=== PATIENT | female | born 1950 | race Caucasian/White ===

== ENCOUNTER 2018-11-27 06:14 | Day surgery (SDC) | payer MEDICARE ==
[2018-11-22 12:41] VITALS: BMI 22.1
[~2018-11-27 06:14] MED LIST: LACTATED RINGERS 1,000 ML IV SCH; LIDOCAINE 1% 20 ML VIAL (10MG/ML) FOR IV START INTRADERMA PRN
[2018-11-27] MEDS ORDERED: PROPOFOL 10 MG/ML 20 ML VIAL IV ONE (06:56)
[2018-11-27] MEDS ORDERED: ONDANSETRON 4 MG/2 ML VIAL ONE (06:56)
[2018-11-27 06:57] VITALS: TEMP 98.6
--- NOTE | 2018-11-27 07:08 | P.GSHP ---
History of Present Illness H&P Date: 11/27/18 Chief Complaint: Colon cancer screening Patient here today for colonoscopy. Last colonoscopy 10 years ago. Mother with history of colon cancer. No bowel related complaints. Past Medical History Past Medical History: Hypertension, Thyroid Disorder Additional Past Medical History / Comment(s): SCLERODERMA, AFFECTS ESOPHAGUS - GETS SPASMS, NAUSEA; RAYNAUD'S. OSTEOPOROSIS. History of Any Multi-Drug Resistant Organisms: None Reported Additional Past Surgical History / Comment(s): EGD, COLONOSCOPIES. Past Anesthesia/Blood Transfusion Reactions: Postoperative Nausea & Vomiting ( PONV) Smoking Status: Never smoker - Past Family History Mother Family Medical History: Cancer Additional Family Medical History / Comment(s): COLON CA Medications and Allergies Home Medications Medication Instructions Recorded Confirmed Type ALPRAZolam [Xanax] 0.25 mg PO BID PRN 11/22/18 11/27/18 History Aspirin [Adult Low Dose Aspirin EC] 81 mg PO DAILY 11/22/18 11/27/18 History Cetirizine HCl [Zyrtec] 10 mg PO DAILY 11/22/18 11/27/18 History Levothyroxine Sodium [Synthroid] 50 mcg PO DAILY 11/22/18 11/27/18 History Losartan Potassium [Cozaar] 100 mg PO DAILY 11/22/18 11/27/18 History Multivitamins, Thera [Multivitamin 1 tab PO DAILY 11/22/18 11/27/18 History (formulary)] Omeprazole Magnesium [PriLOSEC OTC] 20 mg PO DAILY 11/22/18 11/27/18 History Simvastatin 40 mg PO HS 11/22/18 11/27/18 History Allergies Allergy/AdvReac Type Severity Reaction Status Date / Time hydromorphone [From Dilaudid] Allergy Swelling Verified 11/22/18 12:19 OF FACE, HALLUCINATIONS Surgical - Exam Vital Signs Temp Pulse Resp BP Pulse Ox 98.6 F 66 18 160/72 100 11/27/18 06:40 11/27/18 06:40 11/27/18 06:40 11/27/18 06:40 11/27/18 06:40 Physical exam: General: Well-developed, well-nourished HEENT: Normocephalic, sclerae nonicteric Abdomen: Nontender, nondistended Extremities: No edema Neuro: Alert and oriented Assessment and Plan (1) Colon cancer screening Narrative/Plan: Will proceed with colonoscopy at this time Current Visit: Yes Status: Acute Code(s): Z12.11 - ENCOUNTER FOR SCREENING FOR MALIGNANT NEOPLASM OF COLON SNOMED Code(s): 071405239
--- NOTE | 2018-11-27 07:23 | P.PCN ---
Date of Procedure: 11/27/18 Procedure(s) Performed: PREOPERATIVE DIAGNOSIS: Colon cancer screening, family history of colon cancer POSTOPERATIVE DIAGNOSIS: Diverticulosis PROCEDURE: Colonoscopy ANESTHESIA: [facility] SURGEON: Gilles Hubbard M.D. SPECIMENS: None ENDOSCOPIC PROCEDURE: The patient was placed on the endoscopy table in the left decubitus position. The Olympus colonoscope was inserted into the anus and passed under direct visualization to the base of the cecum. The appendiceal orifice was visualized. From that point the scope was slowly withdrawn inspecting all surfaces carefully. There were no neoplastic or polypoid lesions throughout the cecum, ascending, transverse, descending, sigmoid and rectum. There was left-sided diverticulosis noted with a small area of inflammation involving the midsigmoid. This was at the most tortuous area of the colon. The irritation seen could've been related to scope passage. Digital rectal examination was normal. The patient was taken to the recovery room in stable condition per anesthesia guidelines. RECOMMENDATIONS: Increase fiber. Follow-up colonoscopy 5 years.
[2018-11-27 07:40] VITALS: BP 112/70; PULSE 57; RESP 16
== END 2018-11-27 08:00 | disposition home or self-care (01) ==
LOC: ORWHC2ENDO 06:14
PROVIDERS: ATTEND Surgery
DX: Z12.11 Encounter for screening for malignant neoplasm of colon (principal); K57.30 Diverticulosis of large intestine without perforation or abscess without bleeding; Q43.8 Other specified congenital malformations of intestine; K21.9 Gastro-esophageal reflux disease without esophagitis; Z80.0 Family history of malignant neoplasm of digestive organs; I10 Essential (primary) hypertension; E07.9 Disorder of thyroid, unspecified; M34.9 Systemic sclerosis, unspecified; I73.00 Raynaud's syndrome without gangrene; M81.0 Age-related osteoporosis without current pathological fracture; Z79.82 Long term (current) use of aspirin; Z79.890 Hormone replacement therapy; Z79.899 Other long term (current) drug therapy; Z88.5 Allergy status to narcotic agent
CPT/HCPCS: J2405; J2704; G0105

== ENCOUNTER → 2023-08-13 | Outpatient (CLI) | payer MEDICARE ==
--- NOTE | 2023-08-14 07:30 | CA ---
Transthoracic Echo Report Name: Jeannette Daniels Age: 73 Gender: F : 1950 Exam Date: 08/13/2023 11:23 Exam Location: [facility] Ht (in): 63 Wt (lb): 123 Ordering Physician: Lianne Hubbard MD Attending/Referring Phys: Billet Bed Operator Radha Chacon [facility] Procedure CPT: Indications: I10 Essential Hypertension Cardiac Hx: Technical Quality: Fair Contrast 1: Total Dose (mL): Contrast 2: Total Dose (mL): MEASUREMENTS (Male / Female) Normal Values 2D ECHO LV Diastolic Diameter PLAX 3.8 cm 4.2 - 5.9 / 3.9 - 5.3 cm LV Systolic Diameter PLAX 2.6 cm IVS Diastolic Thickness 0.7 cm 0.6 - 1.0 / 0.6 - 0.9 cm LVPW Diastolic Thickness 0.8 cm 0.6 - 1.0 / 0.6 - 0.9 cm LV Relative Wall Thickness 0.4 LVOT Diameter 2.0 cm Ascending Aorta Diameter 2.7 cm M-MODE Aortic Root Diameter MM 2.2 cm LA Systolic Diameter MM 3.2 cm LA Ao Ratio MM 1.4 AV Cusp Separation MM 1.6 cm DOPPLER AV Peak Velocity 152.9 cm/s AV Peak Gradient 9.4 mmHg AV Mean Velocity 109.0 cm/s AV Mean Gradient 5.3 mmHg AV Velocity Time Integral 30.7 cm LVOT Peak Velocity 123.0 cm/s LVOT Peak Gradient 6.0 mmHg LVOT Velocity Time Integral 24.5 cm LVOT Stroke Volume 75.7 cm??? LVOT Stroke Volume Index 48.1 ml/m??? LVOT Cardiac Index 3119.2 cm???/min???m??? AV Area Cont Eq vti 2.5 cm??? AV Area Cont Eq pk 2.5 cm??? Mitral E Point Velocity 89.6 cm/s Mitral A Point Velocity 88.0 cm/s Mitral E to A Ratio 1.0 MV Deceleration Time 120.1 ms LV E' Lateral Velocity 10.4 cm/s Mitral E to LV E' Lateral Ratio 8.7 LV E' Septal Velocity 7.7 cm/s Mitral E to LV E' Septal Ratio 11.6 TR Peak Velocity 252.9 cm/s TR Peak Gradient 25.6 mmHg Right Atrial Pressure 3.0 mmHg Pulmonary Artery Systolic Pressu 28.6 mmHg Right Ventricular Systolic Press 28.6 mmHg FINDINGS Left Ventricle Left ventricular wall thickness normal. Left ventricular cavity size normal. Normal left ventricular systolic function with no obvious regional wall motion abnormalities. Left ventricular ejection fraction is estimated at 55-60%. Right Ventricle Right ventricle at upper limits of normal. Right Atrium Normal right atrial size. Left Atrium Normal left atrial size. Mitral Valve Structurally normal mitral valve. Mild mitral regurgitation. Aortic Valve Trileaflet aortic valve. No aortic valve stenosis or regurgitation. Tricuspid Valve Structurally normal tricuspid valve. Trace-mild tricuspid regurgitation. Pulmonic Valve Pulmonic valve not well visualized. Mild pulmonic regurgitation. Pericardium No pericardial effusion. Aorta Normal size aortic root and proximal ascending aorta. CONCLUSIONS Normal LV size and systolic function. Mild mitral and tricuspid regurgitation. No pericardial effusion. No pulmonary hypertension Previewed by: Dr. Adonis Arroyo MD (Electronically Signed) Final Date: 14 August 2023 07:29
== END | disposition home or self-care (01) ==
LOC: RADECHMAIN 11:10
PROVIDERS: ATTEND Family Medicine
DX: I08.1 Rheumatic disorders of both mitral and tricuspid valves (principal); I10 Essential (primary) hypertension
CPT/HCPCS: 93306

== ENCOUNTER 2024-10-21 07:21 | Day surgery (SDC) | payer MEDICARE ==
[~2024-10-21 07:21] MED LIST changes: -LACTATED RINGERS 1,000 ML IV SCH; +LIDOCAINE 1% (10MG/ML) FOR IV START INTRADERMA PRN; -LIDOCAINE 1% 20 ML VIAL (10MG/ML) FOR IV START INTRADERMA PRN
[2024-10-21 07:48] VITALS: RESP 16; TEMP 98.3
[2024-10-21] MEDS: IV FLUID CONTINUATION 1,000 ML IV ONE ×2 (07:58→08:32)
[2024-10-21] MEDS: LACTATED RINGERS 1,000 ML IV SCH (07:58)
[2024-10-21] MEDS: ONDANSETRON 4 MG/2 ML VIAL IVP STA (08:03)
[2024-10-21] MEDS ORDERED: PROPOFOL 10 MG/ML 20 ML VIAL IV ONE (08:04)
[2024-10-21] MEDS ORDERED: LIDOCAINE 1% INJ 10MG/ML (20 ML MDV) ONE (08:04)
--- NOTE | 2024-10-21 08:10 | P.GSHP ---
History of Present Illness H&P Date: 10/21/24 Chief Complaint: GERD, screening 74-year-old female here for upper and lower endoscopy. Last colonoscopy 5 years ago family history of colon cancer in her mother. Patient also with history of scleroderma and some GERD symptoms. Chronic nausea. Past Medical History Past Medical History: Hypertension, Thyroid Disorder Additional Past Medical History / Comment(s): SCLERODERMA, AFFECTS ESOPHAGUS - GETS SPASMS, NAUSEA; RAYNAUD'S. OSTEOPOROSIS. History of Any Multi-Drug Resistant Organisms: None Reported Additional Past Surgical History / Comment(s): EGD, COLONOSCOPIES. Past Anesthesia/Blood Transfusion Reactions: No Reported Reaction Additional Past Anesthesia/Blood Transfusion Reaction / Comment(s): problems with nausea from scleroderma Smoking Status: Never smoker - Past Family History Mother Family Medical History: Cancer Additional Family Medical History / Comment(s): COLON CA Medications and Allergies Home Medications Medication Instructions Recorded Confirmed Type ALPRAZolam [Xanax] 0.25 mg PO BID PRN 11/22/18 10/21/24 History Cetirizine HCl [Zyrtec] 10 mg PO DAILY 11/22/18 10/21/24 History Levothyroxine Sodium [Synthroid] 50 mcg PO DAILY 11/22/18 10/21/24 History Losartan Potassium [Cozaar] 100 mg PO DAILY 11/22/18 10/21/24 History Multivitamins, Thera [Multivitamin 1 tab PO DAILY 11/22/18 10/21/24 History (formulary)] Omeprazole Magnesium [PriLOSEC OTC] 20 mg PO DAILY 11/22/18 10/21/24 History Simvastatin 40 mg PO HS 11/22/18 10/21/24 History hydroCHLOROthiazide 25 mg PO DAILY 10/16/24 10/21/24 History Allergies Allergy/AdvReac Type Severity Reaction Status Date / Time hydromorphone [From Dilaudid] Allergy Swelling Verified 10/21/24 07:43 OF FACE, HALLUCINATIONS Surgical - Exam Vital Signs Temp Pulse Resp BP Pulse Ox 98.3 F 75 16 152/73 100 10/21/24 07:35 10/21/24 07:35 10/21/24 07:35 10/21/24 07:35 10/21/24 07:35 Physical exam: General: Well-developed, well-nourished HEENT: Normocephalic, sclerae nonicteric Abdomen: Nontender, nondistended Extremities: No edema Neuro: Alert and oriented Assessment and Plan (1) Colon cancer screening Narrative/Plan: Will proceed with upper and lower endoscopy at this time. Current Visit: No Status: Acute Code(s): Z12.11 - ENCOUNTER FOR SCREENING FOR MALIGNANT NEOPLASM OF COLON SNOMED Code(s): 789226139
--- NOTE | 2024-10-21 08:30 | P.PCN ---
Date of Procedure: 10/21/24 Procedure(s) Performed: PREOPERATIVE DIAGNOSIS: GERD, screening, family history of colon cancer POSTOPERATIVE DIAGNOSIS: Gastritis, hiatal hernia, gastric polyps, diverticulosis, ascending colon polyp PROCEDURE: 1. EGD with biopsy 2. Colonoscopy with snare polypectomy ANESTHESIA: [facility] [place] SURGEON: Gilles Hubbard M.D. SPECIMENS: Antrum, gastric polyp, polyp ENDOSCOPIC PROCEDURE: The patient was on the endoscopy table in the left decubitus position. The Olympus gastroscope was inserted into the oropharynx and passed under direct visualization to the region of the third portion of the duodenum. From that point the scope was slowly withdrawn inspecting all surfaces carefully. There were no neoplastic inflammatory or polypoid lesions throughout the duodenum. The pylorus was widely patent. The stomach was carefully inspected. There was mild gastritis present. A biopsy of the antrum took place to rule out H. pylori. Retroflexion revealed a small to medium sized hiatal hernia. The GE junction was present 2 cm above the diaphragmatic hiatus. Patient had a few small benign-appearing polyps in the fundus of the stomach. The largest of these was biopsied. The esophagus was examined. There was no evidence of neoplastic or inflammatory changes throughout the esophagus. The patient was kept on the endoscopy table in the left decubitus position. The Olympus colonoscope was inserted into the anus and passed under direct visualization to the base of the cecum. The appendiceal orifice was visualized. From that point the scope was slowly withdrawn inspecting all surfaces carefully. There were no neoplastic inflammatory or polypoid lesions throughout the cecum. In the ascending colon a small polyp was seen and removed using the snare with cautery technique. The remainder of the ascending transverse descending sigmoid and rectum were normal with the exception of left-sided diverticulosis. Digital rectal examination was normal. The patient was taken to the recovery room in stable condition per anesthesia guidelines. RECOMMENDATIONS: Await biopsy results. Repeat colonoscopy 5 years.
[2024-10-21 08:54] VITALS: BP 146/75; PULSE 65
== END 2024-10-21 09:19 | disposition home or self-care (01) ==
LOC: ORWHC2ENDO 07:21
PROVIDERS: ATTEND Surgery
DX: Z12.11 Encounter for screening for malignant neoplasm of colon (principal); K29.70 Gastritis, unspecified, without bleeding; D12.2 Benign neoplasm of ascending colon; K21.9 Gastro-esophageal reflux disease without esophagitis; K44.9 Diaphragmatic hernia without obstruction or gangrene; K31.7 Polyp of stomach and duodenum; K57.30 Diverticulosis of large intestine without perforation or abscess without bleeding; Z80.0 Family history of malignant neoplasm of digestive organs; I10 Essential (primary) hypertension; E07.9 Disorder of thyroid, unspecified; Z88.5 Allergy status to narcotic agent; Z79.890 Hormone replacement therapy; Z79.899 Other long term (current) drug therapy
CPT/HCPCS: 45385; 43239; J2405; J2003; J2704; 88305